=== PATIENT | female | born 1960 | race Two or more races ===

== ENCOUNTER → 2016-04-12 | Outpatient (CLI) | payer BC, SELFPAY ==
[~2016-04-12] MED LIST: ACETAMINOPHEN325 MG PO; ACETAMINOPHEN650 M2 PO; ASPIR 8181 MG PO; BENADRYL25 MG PO; LIPITOR20 M1 PO; NORVASC10 MG PO; PHENERGAN25 M1; PREMARIN0.625 MG; PRINIVIL OR ZES10 MG PO; PRINIVIL5 MG PO; TOPROL XL 5050 MG PO; TOPROL XL25 MG PO
== END | disposition disaster alternative care site (69) ==
LOC: GRAD 11:40
DX: M25.562 Pain in left knee (principal); M17.0 Bilateral primary osteoarthritis of knee; M94.262 Chondromalacia, left knee

== ENCOUNTER 2016-05-29 02:23 | Emergency (ER) | payer BC, SELFPAY ==
--- NOTE | ~2016-05-29 | ER ---
PATIENT'S NAME: ADIEL WILLOUGHBY [facility] AGE: 55 Y [address] ROOM: [place] [address] LOCATION: [facility] ADMIT DATE: 05/29/2016 ER/Outpatient Report DISCHARGE DATE: FAMILY PHYSICIAN: Michael Jesus MD ATTENDING PHYSICIAN: Dyllan Frye Admission date and time documented on the medical record. I saw the patient at 0240 hours. CHIEF COMPLAINT: Headache, problems sleeping, elevated blood pressure. HISTORY OF PRESENT ILLNESS: The patient is a 55-year-old female, who presents to the emergency room with inability to sleep because of an occipital stress-related headache. She does have a history of headaches similar to what she has tonight. She does have hypertension. Blood pressure was up tonight because of her stress and headache. No chest pain or shortness of breath. No abdominal pain, nausea, vomiting, diarrhea. No urinary symptoms. No lightheadedness, dizziness, syncope, or near syncope. No fall or trauma. No recent colds, coughs, flus, fever, chills, or sweats. No eyes, ears, nose, throat, neck, or spine pain. Does have a history of depression. Does have a history of non-insulin- dependent diabetes mellitus. No neuro changes. HOME MEDICATIONS: See attached medication list. ALLERGIES: ULTRAM. SOCIAL HISTORY: Nonsmoker, nondrinker. SIGNIFICANT PAST MEDICAL HISTORY: Atherosclerotic ischemic heart disease with coronary artery disease, spastic angina, hypertension, gastritis, ftq-mznziip-byuoqaohy diabetes mellitus type 2, headaches, fibromyalgia and dyslipidemia. OPERATIONS: Kidney surgery, hysterectomy, x2, cholecystectomy, appendectomy, cardiac catheterization. REVIEW OF SYSTEMS: All systems reviewed by me are negative with the exception of those discussed in the history of present illness. PATIENT'S NAME: ADIEL WILLOUGHBY [facility] AGE: 55 Y [address] ROOM: [place], [place] [address] LOCATION: [facility] ADMIT DATE: 05/29/2016 ER/Outpatient Report DISCHARGE DATE: FAMILY PHYSICIAN: Michael Jesus MD ATTENDING PHYSICIAN: Dyllan Frye PHYSICAL EXAMINATION: VITAL SIGNS: Temperature 97 tympanic, pulse 83, respirations 16, blood pressure 164/104, O2 saturation on room air 95%. HEENT: Head: Normocephalic. Eyes: Clear. Ears: Clear TMs bilaterally. Nose and Throat: Clear. Mucous membranes moist. Teeth, jaw intact. NECK: No nuchal rigidity. No thyromegaly or cervical adenopathy. Tenderness to the occipital scalp area. LUNGS: Clear. HEART: Regular. ABDOMEN: Soft, nontender. Good bowel tones. EXTREMITIES: Neurovascularly intact. SKIN: Clear. IMPRESSION: 1. Headache. 2. Hypertension. 3. Diabetes mellitus type 2. 4. Fibromyalgia. PLAN: The patient was given 1 L of normal saline. Benadryl 50 mg IM followed 10 minutes later by Compazine 10 mg and Nubain 5 mg IV in the emergency department. The patient was dismissed home. Observation. Activity as tolerated. Continue present home medications and care. Follow up with personal physician as needed. Discussion ensued with the patient concerning my findings and recommendations. MD ROBINSON DUMONT/modl /[id number] d: 05/29/16 0433 t: 05/29/16 1817, OUTPATIENT REPORT
== END 2016-05-29 04:05 | disposition disaster alternative care site (69) ==
LOC: GMED 02:23
DX: I10 Essential (primary) hypertension (principal); E11.9 Type 2 diabetes mellitus without complications; M79.7 Fibromyalgia; I25.10 Atherosclerotic heart disease of native coronary artery without angina pectoris; E78.5 Hyperlipidemia, unspecified; F32.9 Major depressive disorder, single episode, unspecified; Z98.890 Other specified postprocedural states; Z90.49 Acquired absence of other specified parts of digestive tract; Z88.5 Allergy status to narcotic agent; Z79.82 Long term (current) use of aspirin; Z79.899 Other long term (current) drug therapy
CPT/HCPCS: J0780; J1200; J2300; J7030

== ENCOUNTER 2016-06-05 04:26 | Emergency (ER) | payer BC, SELFPAY ==
--- NOTE | ~2016-06-05 | ER ---
PATIENT'S NAME: [facility] AGE: 55 Y [address] ROOM: [place] [address] LOCATION: [facility] ADMIT DATE: 06/05/2016 ER/Outpatient Report DISCHARGE DATE: 06/05/2016 FAMILY PHYSICIAN: Michael Jesus MD ATTENDING PHYSICIAN: Fidel Maria TIME OF ARRIVAL: 04:32. TIME OF EVALUATION: 04:32. CHIEF COMPLAINT: Chest pain. HISTORY OF PRESENT ILLNESS: The patient is a 55-year-old female, who presented to Emergency Department today with a chief complaint of chest pain. She reports this started at 02:30 last night. She reports she is having some shortness of breath. Pain is currently 8/10 in severity. It is sharp. It is worse with movement. She denies any fevers or chills. No nausea or vomiting. No diarrhea or constipation. No diaphoresis. The patient denies any ripping or tearing sensation. The patient did have a knee surgery about 5 weeks prior to arrival. PAST MEDICAL HISTORY: 1. Fibromyalgia. 2. Coronary artery disease. 3. Hypertension. 4. Dyslipidemia. PAST SURGICAL HISTORY: 1. Kidney surgery. 2. Hysterectomy. 3. x2. 4. Cholecystectomy. 5. Appendectomy. 6. Left knee surgery. SOCIAL HISTORY: The patient denies any tobacco, alcohol, or illicit drug use. ALLERGIES: TO ULTRAM. PATIENT'S NAME: [facility] AGE: 55 Y [address] ROOM: [place] [address] LOCATION: [facility] ADMIT DATE: 06/05/2016 ER/Outpatient Report DISCHARGE DATE: 06/05/2016 FAMILY PHYSICIAN: Michael Jesus MD ATTENDING PHYSICIAN: Fidel Maria MEDICATIONS: Please see list. REVIEW OF SYSTEMS: All systems are reviewed by myself, and are negative with the exception of those discussed in HPI and past medical history. PHYSICAL EXAMINATION: VITAL SIGNS: Weight is 98.1 kg. Blood pressure was 153/68, pulse was 83, respiratory rate was 18, temperature was 98.6, and oxygen saturation was 98% on room air. GENERAL: The patient is a 55-year-old female, who appears stated age, in no acute distress at this time. HEENT: Head is normocephalic and atraumatic. Pupils are equal, round, and reactive to light and accommodation. Extraocular motions are intact. Nares are patent bilaterally. TMs are clear. Oropharynx is clear. NECK: Supple. There is no nuchal rigidity. CARDIOVASCULAR: Regular rate and rhythm. No murmurs, rubs, or gallops. LUNGS: Clear to auscultation bilaterally. No wheezes, rales, or rhonchi. ABDOMEN: Soft, nontender, and nondistended. No rebound, rigidity, or guarding. MUSCULOSKELETAL: The patient moves all 4 extremities. SKIN: Warm and dry. She does have some trace bilateral pretibial edema. There is no unilateral swelling of the leg noted. The patient does complain of pain to the left leg as well. LABORATORY DATA AND DIAGNOSTIC STUDIES: Labs and x-rays are obtained. EKG is obtained, is interpreted by myself at 04:40 a.m. showed sinus rhythm with a rate of 73, left axis deviation, and normal interval. No ST elevation, ST depression, or T-wave inversion. CBC is normal. CMP is normal. Coags are normal. Magnesium is normal. ProBNP is normal. D-dimer is 0.98. Cardiac enzymes are normal. CT scan of the chest showed no PE or cardiomegaly. There was scattered ground-glass opacity with mild edema versus air trapping noted. Two-hour cardiac enzymes as well as ultrasound and venous Dopplers of the lower extremities are pending. IMPRESSION: 1. Chest pain of unclear etiology. 2. Left lower extremity pain, status post five-week postoperative knee surgery. 3. Initial visit. EMERGENCY DEPARTMENT COURSE: The patient was brought back to the Examination Room. Seen and evaluated by myself. IV is established. Laboratory analysis and imaging are obtained as PATIENT'S NAME: ADIEL WILLOUGHBY [facility] AGE: 55 Y [address] ROOM: [place], [place] [address] LOCATION: [facility] ADMIT DATE: 06/05/2016 ER/Outpatient Report DISCHARGE DATE: 06/05/2016 FAMILY PHYSICIAN: Michael Jesus MD ATTENDING PHYSICIAN: Fidel Maria described above. The patient was given 2 mg of morphine IV. She was given four tablets of aspirin, as well as 0.4 mg of nitro with minimal improvement. The patient has been given another 2 mg of morphine with some improvement in pain. The history and physical are obtained with the assistance of an supervisor scenic arts through the [employer]. I have discussed results with the patient at this point. Two-hour enzymes are pending. Ultrasound of the lower extremities are pending. I have discussed the case with Dr. Frye at shift change. She will follow up on the two-hour enzymes as well as lower extremity ultrasound. There is no evidence of pulmonary embolism at this time. DISPOSITION: Per Dr. Frye. DO DEVEN SMITH/brendal /[id number] d: 06/13/162004 t: 06/18/161810, OUTPATIENT REPORT
--- NOTE | ~2016-06-05 | ENPV ---
Vascular Lower Extremities DVT Study Procedure Demographics Patient Name ADIEL WILLOUGHBY Date of Study 06/05/2016 Patient Number [id number] Gender Female Date of 1960 Age 55 Visit Number [id number] Height Accession Number [id number] Weight Room Number BSA BMI Referring Crow Bailey MD Physician Edin Rodriguez MD Physician Physician Ordering Physician Crow Parra MD Bakery Machine Mechanic Packaging Manager Gisela Galan, RT,RVT,[facility] Conclusions Summary Normal venous duplex examination of the lower left extremity with normal venous Doppler signals noted throughout. No evidence of thrombophlebitis is noted in the lower left extremity in the deep and superficial veins of the legs. Spontaneous contrast "smoke" visualized in the left mid femoral vein. No evidence of deep vein thrombosis or superficial thrombophlebitis in the contralateral thigh. Procedure Type of Study: Veins:Lower Extremities DVT Study, Lower Extremity Left. Indications for Study:Pain in Limb. Appropriate Use Criteria:9 Allergies - Other:(ultram). Patient Status:STAT. Study Location:ER. Technical Quality:Adequate visualization. - Preliminary reported to:Nehal MCCALL. Signature dtt: SANGEETA TSANG dtd: 06/05/16 0641 Physician Self Edit
--- NOTE | ~2016-06-05 | ER ---
PATIENT'S NAME: ADIEL WILLOUGHBY [facility] AGE: 55 Y [address] ROOM: [place] [address] LOCATION: [facility] ADMIT DATE: 06/05/2016 ER/Outpatient Report DISCHARGE DATE: 06/05/2016 FAMILY PHYSICIAN: Michael Jesus MD ATTENDING PHYSICIAN: Fidel Maria HISTORY OF PRESENT ILLNESS: This patient is a 55-year-old female, who presented with left knee pain and chest pain. She initially saw Dr. Maria. See Dr. Maria's dictation in regard to the patient's chief complaint, history of present illness, past medical history, physical exam, laboratory and x-ray study results. Dr. Maria asked me to follow up with the venous Doppler study of the left leg results, second set or 2-hour cardiac enzyme test results, final diagnosis, and treatment plan. The patient's 2-hour cardiac enzymes were normal. Her venous Doppler study of the left leg showed no evidence of deep vein thrombosis. IMPRESSION: 1. Left knee pain. 2. Chest pain. PLAN: The patient dismissed home. Observation. Activity as tolerated. Continue present home medications and care. Follow up with personal physician in 1 to 2 days. Discussion ensued with the patient concerning my findings and recommendations, and she understands. MD ROBINSON DUMONT/modl /[id number] d: 06/05/16 0746 t: 06/06/16 0612, OUTPATIENT REPORT
[2016-06-05 04:54] LABS: BASOPHIL % 0.3 %; EOSINOPHIL # 0.1 K/uL (0.0-0.5); EOSINOPHIL % 1.5 %; HEMATOCRIT 38.1 % (33.0-46.0); HEMOGLOBIN 12.9 g/dL (10.0-15.0); IMMATURE GRANULOCYTE % 0.3 %; LYMPHOCYTE # 3.2 K/uL (0.8-4.0); LYMPHOCYTE % 43.9 %; MCH 30.2 pg (27.0-34.0); MCHC 33.9 gm/dL (32.0-36.5); MCV 89.2 fl (83.0-98.0); MONOCYTE # 0.5 K/uL (0.0-1.0); MONOCYTE % 6.4 %; MPV 8.6 fl (9.4-12.4); NEUTROPHIL # (ANC) 3.5 K/uL (1.8-7.8); NEUTROPHIL % 47.6 %; NRBC % 0 /100WBC (0-0.00); PLATELET COUNT 314 K/uL (150-450); RBC 4.27 M/uL (3.50-5.50); WBC 7.4 K/uL (4.0-11.0)
[2016-06-05 05:09] LABS: INR - (THERAPEUTIC) 0.98 (0.92-1.07); PROTIME 10.3 SECONDS (9.8-11.4); PTT 29 SECONDS (25-32)
[2016-06-05 05:13] LABS: ALBUMIN 4.1 gm/dL (3.5-5.0); ALK PHOS 116 IU/L (33-138); ALT 36 IU/L (12-78); ANION GAP 11.8 (10.0-19.0); AST 18 IU/L (10-40); BLOOD UREA NITROGEN 12 mg/dL (6-24); CALCIUM 9.1 mg/dL (8.5-10.5); CHLORIDE 105 mMol/L (96-110); CO2 26 mMol/L (22-32); CPK 145 IU/L (21-215); CREATININE 0.7 mg/dL (0.5-1.1); ESTIMATED GFR (MDRD EQUATION) > 60; MAGNESIUM 2.2 mg/dL (1.8-2.6); POTASSIUM 3.8 mMol/L (3.7-5.1); SODIUM 139 mMol/L (135-145); TOTAL BILIRUBIN 0.2 mg/dL (0.0-1.5); TOTAL PROTEIN 8.4 g/dL (6.0-8.4)
[2016-06-05 07:12] LABS: CPK 142 IU/L (21-215)
== END 2016-06-05 07:33 | disposition disaster alternative care site (69) ==
LOC: GMED 04:26
PROVIDERS: Emergency Medicine
DX: M25.562 Pain in left knee (principal); R07.9 Chest pain, unspecified
CPT/HCPCS: J2270; Q9967

== ENCOUNTER 2016-08-05 18:35 | Emergency (ER) | payer BC, SELFPAY ==
--- NOTE | ~2016-08-05 | ER ---
PATIENT'S NAME: ADIEL WILLOUGHBY [facility] AGE: 55 Y [address] ROOM: [place] [address] LOCATION: ED ADMIT DATE: 08/05/2016 ER/Outpatient Report DISCHARGE DATE: 08/05/2016 FAMILY PHYSICIAN: Physician, Unknown ATTENDING PHYSICIAN: Dyllan Frye Admission date and time were documented on the medical record. I saw the patient at 1845 hours. CHIEF COMPLAINT: Mid anterior chest pain and left anterior chest pain. HISTORY OF PRESENT ILLNESS: This patient is a 55-year-old female, who was working out in the pool here at [facility] Therapy area. About 15 minutes prior to admission to the Emergency Room, she developed some mid-to-left anterior chest pain. No radiation of the pain. It hurts when she moves and hurts when she takes a deep breath. She does have some nausea, but no vomiting or diarrhea or incontinence of stool or urine. She has generalized weakness. No lightheadedness, dizziness, syncope, or near syncope. No fall or trauma. No recent colds, coughs, flus, fever, chills, or sweats. No headache; eyes, ears, nose, throat, neck, or spine pain. No shortness of breath. No diaphoresis. No abdominal pain. No skin eruptions or rash. No neuro changes. She does have non-insulin- dependent diabetes mellitus type 2, but no other endocrine problems. No psych issues. She does have a history of fibromyalgia. HOME MEDICATIONS: See attached medication list. ALLERGIES: ULTRAM. SOCIAL HISTORY: Non-smoker and non-drinker. SIGNIFICANT PAST MEDICAL HISTORY: 1. Atherosclerotic ischemic heart disease with coronary artery disease. 2. Spastic angina. 3. Hypertension. 4. Gastritis. 5. Vdp-taspdta-vzfngaglz diabetes mellitus, type 2. 6. Headaches. 7. Fibromyalgia. 8. Dyslipidemia. PATIENT'S NAME: ADIEL WILLOUGHBY [facility] AGE: 55 Y [address] ROOM: [place] [address] LOCATION: [facility] ADMIT DATE: 08/05/2016 ER/Outpatient Report DISCHARGE DATE: 08/05/2016 FAMILY PHYSICIAN: Physician, Unknown ATTENDING PHYSICIAN: Dyllan Frye OPERATIONS: 1. Kidney surgery. 2. Hysterectomy. 3. x2. 4. Cholecystectomy. 5. Appendectomy. 6. Cardiac catheterization, last being in 2014. 7. Left knee surgery. REVIEW OF SYSTEMS: All systems reviewed by me are negative, with the exception of those discussed in the history of the present illness. PHYSICAL EXAMINATION: VITAL SIGNS: Blood pressure was 180/82, pulse was 85, respirations were 16, and O2 saturation on room air was 96%. Red Coma Scale was 15. HEAD: Normocephalic. No abrasion, contusion, laceration, or swelling of the scalp or face. EYES: Extraocular muscles are intact. PERRL. EARS, NOSE, AND THROAT: Clear. Mucous membranes were moist. Teeth and jaw were intact. NECK: No nuchal rigidity. No findings of adenopathy. Some tenderness in the sternocleidomastoid muscles bilaterally and in the trapezius muscle bilaterally. LUNGS: Clear. HEART: Regular. The patient has tenderness of the sternum and left anterior chest wall, reproduces her pain on palpation. ABDOMEN: Soft, nondistended, and nontender. Good bowel tones. No organomegaly or abnormal masses are palpable. No CVA tenderness. EXTREMITIES: Intact. NEUROVASCULAR: Intact. SKIN: Clear. No skin eruptions or rash. EMERGENCY ROOM COURSE: The patient was given baby aspirin orally here in the Emergency Room. The patient did burp, and the pain improved. DIAGNOSTIC STUDIES: EKG showed sinus rhythm. No acute ST elevation, ischemic change, or arrhythmia. Chest x-ray showed no acute infiltrate. We will review x-ray with the radiologist. LABORATORY DATA: PATIENT'S NAME: ADIEL WILLOUGHBY [facility] AGE: 55 Y [address] ROOM: [place], [place] [address] LOCATION: ED ADMIT DATE: 08/05/2016 ER/Outpatient Report DISCHARGE DATE: 08/05/2016 FAMILY PHYSICIAN: Physician, Unknown ATTENDING PHYSICIAN: Dyllan Frye CMS was normal except for a slight low potassium of 3.6, magnesium was 2.0, and CPK was 153. Fqfzb-vb-mnqe cardiac enzymes were normal. White count was 8100, 46 segs, 47 lymphs, 5 monos, 1 eos, hemoglobin was 13.1 with hematocrit of 38.4, and platelet count was 268,000. PTT was 28 and pro-time was 10.2 with an INR of 0.97. IMPRESSION: 1. Mid left anterior chest pain, non-radiating, worse with taking a deep breath, movement, and with palpation. Etiology undetermined; however, this most likely is musculoskeletal in origin and inflammatory in nature. She may have some reflux problems also. It does not appear to be spastic angina or heart pain at this time. 2. Rdu-zbwowww-ggsoxlqfj diabetes mellitus, type 2. 3. Hypertension. 4. History of fibromyalgia. 5. Dyslipidemia. PLAN: The patient was dismissed home. Observation. Activity as tolerated. Continue present home medications and care. Heating pad to sore areas intermittently as needed. Tylenol and ibuprofen or Aleve as needed for pain. Follow up with personal physician as needed. Discussion was ensued with the patient and her son regarding my findings and recommendations, they understand. MD ROBINSON DUMONT/modl /[id number] d: 08/06/16 0155 t: 08/06/16 1809, OUTPATIENT REPORT
[2016-08-05 19:07] LABS: BASOPHIL % 0.4 %; EOSINOPHIL # 0.1 K/uL (0.0-0.5); HEMATOCRIT 38.4 % (33.0-46.0); HEMOGLOBIN 13.1 g/dL (10.0-15.0); IMMATURE GRANULOCYTE % 0.2 %; LYMPHOCYTE # 3.8 K/uL (0.8-4.0); LYMPHOCYTE % 47.3 %; MCH 30.5 pg (27.0-34.0); MCHC 34.1 gm/dL (32.0-36.5); MCV 89.3 fl (83.0-98.0); MONOCYTE # 0.4 K/uL (0.0-1.0); MONOCYTE % 4.9 %; MPV 8.9 fl (9.4-12.4); NEUTROPHIL # (ANC) 3.7 K/uL (1.8-7.8); NEUTROPHIL % 46.2 %; NRBC % 0 /100WBC (0-0.00); PLATELET COUNT 268 K/uL (150-450); RDW-CV 13.2 % (11.9-14.6); WBC 8.1 K/uL (4.0-11.0)
[2016-08-05 19:17] LABS: INR - (THERAPEUTIC) 0.97 (0.92-1.07); PROTIME 10.2 SECONDS (9.8-11.4); PTT 28 SECONDS (25-32)
[2016-08-05 19:26] LABS: ALK PHOS 94 IU/L (33-138); ALT 34 IU/L (12-78); ANION GAP 11.6 (10.0-19.0); AST 20 IU/L (10-40); BLOOD UREA NITROGEN 12 mg/dL (6-24); CALCIUM 9.2 mg/dL (8.5-10.5); CHLORIDE 105 mMol/L (96-110); CO2 25 mMol/L (22-32); CPK 153 IU/L (21-215); CREATININE 0.7 mg/dL (0.5-1.1); ESTIMATED GFR (MDRD EQUATION) > 60; POTASSIUM 3.6 mMol/L (3.7-5.1); SODIUM 138 mMol/L (135-145); TOTAL BILIRUBIN 0.2 mg/dL (0.0-1.5); TOTAL PROTEIN 8.2 g/dL (6.0-8.4)
== END 2016-08-05 19:46 | disposition disaster alternative care site (69) ==
LOC: GMED 18:35
PROVIDERS: Emergency Medicine
DX: R07.89 Other chest pain (principal); I25.111 Atherosclerotic heart disease of native coronary artery with angina pectoris with documented spasm; I10 Essential (primary) hypertension; E11.9 Type 2 diabetes mellitus without complications; E78.5 Hyperlipidemia, unspecified; Z79.82 Long term (current) use of aspirin; Z79.899 Other long term (current) drug therapy; Z88.5 Allergy status to narcotic agent; Z90.710 Acquired absence of both cervix and uterus; Z90.49 Acquired absence of other specified parts of digestive tract; Z98.890 Other specified postprocedural states

== ENCOUNTER 2016-10-15 17:42 | Emergency (ER) | payer BC ==
--- NOTE | ~2016-10-15 | ER ---
PATIENT'S NAME: ADIEL WILLOUGHBY [facility] AGE: 55 Y [address] ROOM: [place] [id number] LOCATION: [facility] ADMIT DATE: 10/15/2016 ER/Outpatient Report DISCHARGE DATE: 10/15/2016 FAMILY PHYSICIAN: Michael Jesus MD ATTENDING PHYSICIAN: Margaret Hester Time of Arrival: 1742 hours. Time of Evaluation: 1805 hours. CHIEF COMPLAINT: Frequent urination. HISTORY OF PRESENT ILLNESS: This is a 55-year-old fww-Uisbrjf-njorqubg female. Interpretation was done through the [employer]. The patient states that she has had increased urinary frequency and urgency for the past couple of days. She states that when her blood pressure is elevated, she tends to have urination problems. The patient states that she has not been checking her blood pressure at home. She just has a sensation that it has been high. States she has also had some left shoulder pain, radiates into her left chest, and causes her to have palpitations at times. She has had several episodes of this in the past but has had some in the last couple of days as well. She denies any cough. No vomiting but has had some nausea. No troubles with bowel movements. No recent upper respiratory infections. ALLERGIES: PLEASE SEE MEDICATION LIST IN NURSE'S NOTES. MEDICATIONS: Please see medication list in nurse's notes. PAST MEDICAL HISTORY: Insulin-dependent diabetes, acid reflux, hypertension, 3 C-sections, and hysterectomy. SOCIAL HISTORY: Denies smoking, drug, or alcohol use. REVIEW OF SYSTEMS: All systems were reviewed and were negative with the exception of those discussed in the HPI. PHYSICAL EXAMINATION: VITAL SIGNS: Height 5 feet 4 inches stated, weight 97.2 kg taken, blood pressure is 190/92, pulse 80, respirations 18, temperature 97.9 degrees PATIENT'S NAME: [facility] AGE: 55 Y [address] ROOM: [place], [place] [address] LOCATION: [facility] ADMIT DATE: 10/15/2016 ER/Outpatient Report DISCHARGE DATE: 10/15/2016 FAMILY PHYSICIAN: Michael Jesus MD ATTENDING PHYSICIAN: Margaret Hester tympanically, and saturations 95% on room air. Red Coma Score is 15. GENERAL: An alert, obese female, in no acute distress. HEENT: Head: Normocephalic. Eyes: Pupils are equal and reactive to light. Does display moist mucous membranes. LUNGS: Clear to auscultation bilaterally. HEART: Regular rate and rhythm. ABDOMEN: Soft, it is nontender. She has good bowel sounds throughout. No masses are palpated. EXTREMITIES: She has full range of motion of all limbs. SKIN: Warm, dry, and intact. MUSCULOSKELETAL: She has minor tenderness to palpation over her left shoulder, worsens with range of motion. LABORATORY DATA AND X-RAYS: CBC: White count is 8.3, hemoglobin is 12.9, platelets 272, ANC is 4.2, INR is 0.99. CMS: Sodium is 138, potassium is 3.4, BUN 12, creatinine 0.7, otherwise unremarkable. Magnesium is 2.0. CPK is 138, CK-MB is 1.5, troponin I is less than 0.040. Urinalysis is negative for any infection. Second set of cardiac enzymes: CPK is 120, CK-MB is 1.4, troponin I is less than 0.040. EKG shows sinus rhythm. Chest x-ray was negative for any infiltrate. IMPRESSION: 1. Urinary frequency. 2. Chest discomfort. ASSESSMENT AND PLAN: We did give the patient 3 baby aspirin after her arrival here, and I gave her some Tylenol later on in her ER stay. The patient states that she is feeling much better. We will dismiss the patient to home. I did discuss the patient's care with Dr. Frye. She needs to continue her home medications, and she needs to follow up with Dr. Jesus in the next 1 to 2 days. The patient and the patient's understand and agree with care. BIANCA JACOBO PA-C FOR MD HORACIO FIGUEREDO/ailyn /[id number] d: t: 10/18/16 1215, OUTPATIENT REPORT
[2016-10-15 18:48] LABS: BASOPHIL % 0.4 %; EOSINOPHIL # 0.1 K/uL (0.0-0.5); EOSINOPHIL % 0.8 %; HEMATOCRIT 38.5 % (33.0-46.0); HEMOGLOBIN 12.9 g/dL (10.0-15.0); IMMATURE GRANULOCYTE % 0.4 %; LYMPHOCYTE # 3.5 K/uL (0.8-4.0); LYMPHOCYTE % 42.8 %; MCH 29.9 pg (27.0-34.0); MCHC 33.5 gm/dL (32.0-36.5); MCV 89.3 fl (83.0-98.0); MONOCYTE # 0.4 K/uL (0.0-1.0); MONOCYTE % 5.2 %; MPV 8.8 fl (9.4-12.4); NEUTROPHIL # (ANC) 4.2 K/uL (1.8-7.8); NEUTROPHIL % 50.4 %; NRBC % 0 /100WBC (0-0.00); PLATELET COUNT 272 K/uL (150-450); RBC 4.31 M/uL (3.50-5.50); RDW-CV 13.2 % (11.9-14.6); WBC 8.3 K/uL (4.0-11.0)
[2016-10-15 18:59] LABS: INR - (THERAPEUTIC) 0.99 (0.92-1.07); PROTIME 10.4 SECONDS (9.8-11.4); PTT 31 SECONDS (25-32)
[2016-10-15 19:01] LABS: BILIRUBIN URINE NEGATIVE (NEGATIVE); BLOOD URINE 25 /UL (NEGATIVE); COLOR URINE YELLOW (YELLOW); GLUCOSE URINE NEGATIVE (NEGATIVE); KETONE URINE NEGATIVE (NEGATIVE); LEUKOCYTES URINE NEGATIVE /UL (NEGATIVE); NITRITE URINE NEGATIVE (NEGATIVE); PROTEIN URINE 15 mg/dL (NEGATIVE); TURBIDITY URINE CLEAR (CLEAR); UROBILINOGEN URINE NORMAL (NORMAL)
[2016-10-15 19:07] LABS: ALK PHOS 97 IU/L (33-138); ALT 37 IU/L (12-78); ANION GAP 10.4 (10.0-19.0); AST 20 IU/L (10-40); BLOOD UREA NITROGEN 12 mg/dL (6-24); CALCIUM 9.3 mg/dL (8.5-10.5); CHLORIDE 104 mMol/L (96-110); CO2 27 mMol/L (22-32); CPK 138 IU/L (21-215); CREATININE 0.7 mg/dL (0.5-1.1); POTASSIUM 3.4 mMol/L (3.7-5.1); SODIUM 138 mMol/L (135-145); TOTAL PROTEIN 8.2 g/dL (6.0-8.4)
[2016-10-15 19:08] LABS: TOTAL BILIRUBIN 0.3 mg/dL (0.0-1.5)
[2016-10-15 19:08] LABS: BACTERIA URINE RARE (NEGATIVE); RBC URINE 0-2 #/HPF (NEGATIVE); WBC URINE RARE #/HPF (NEGATIVE)
[2016-10-15 21:02] LABS: CPK 120 IU/L (21-215)
== END 2016-10-15 21:40 | disposition disaster alternative care site (69) ==
LOC: GMED 17:42
PROVIDERS: Physician Assistant Medical
DX: R35.0 Frequency of micturition (principal); R07.89 Other chest pain; I10 Essential (primary) hypertension; E11.9 Type 2 diabetes mellitus without complications; K21.9 Gastro-esophageal reflux disease without esophagitis; Z90.710 Acquired absence of both cervix and uterus; Z79.82 Long term (current) use of aspirin; Z79.84 Long term (current) use of oral hypoglycemic drugs; Z79.899 Other long term (current) drug therapy; Z98.890 Other specified postprocedural states